=== PATIENT | female | born 1985 | race Caucasian/White ===

== ENCOUNTER 2024-03-14 01:57 | Inpatient (IN) | payer OTHER, SELFPAY ==
[2024-03-13 23:45] VITALS: BP 160/103; BMI 21.0
[2024-03-13 23:47] VITALS: BP 160/103
[2024-03-14] VITALS (7 sets, daily range): BP systolic 131–152; BP diastolic 89–107; BMI 20.4
[2024-03-14 00:11] LABS: % Basophils 1.4 % (0-2); % Eosinophils 0.8 % (0-6); % Immature Granulocytes 0.3 % (0-0.5); % Lymphocytes 19.1 % (20.5-51.1); % Monocytes 13.8 % (1.7-9.3); % Neutrophils 64.6 % (42.2-75.2); Absolute Basophils 0.1 10^3/uL (0-0.2); Absolute Eosinophils 0.1 10^3/uL (0-0.7); Absolute Lymphocytes 1.5 10^3/uL (1.2-3.4); Absolute Monocytes 1.1 10^3/uL (0.1-0.6); Absolute Neutrophils 4.9 10^3/uL (1.4-6.5); Hematocrit 38.8 % (37.0-47.0); Hemoglobin 13.9 g/dL (12.0-16.0); Mean Corp Hgb Conc. 35.8 g/dL (33.0-37.0); Mean Corpuscular Hgb 34.9 pg (27.0-31.0); Mean Corpuscular Volume 97.5 fL (81.0-99.0); Mean Platelet Volume 9.7 fL (7.4-10.4); Nucleated Red Blood Cells % 0 %; Platelet Count 354 10^3/uL (130-400); Red Blood Cell Count 3.98 10^6/uL (4.20-5.40); Red Cell Dist. Width 12.4 % (11.5-14.5); White Blood Cell Count 7.6 10^3/uL (4.8-10.8)
--- NOTE | 2024-03-14 00:16 | ED.GENMED ---
History of Present Illness
General
Chief Complaint: Seizure
Source: patient and spouse
Exam Limitations: none
Time Seen by Provider: 03/13/24 23:54
Travel History
Have you had any contact with someone who has COVID-19?: No
Do you have any symptoms of coronavirus? Fever > 100 degrees, chills, cough, shortness of breath, sore throat, loss of taste or smell, muscle aches, or headache?: No
History of Present Illness
History of Present Illness:
This is a 38 year old female that is brought in by ambulance with c/o possible seizure. states that she has been under a lot of stress. States that she had laid down with her boys and then she came to bed. States that he knew she felt
stressed. States that she has also been out of her Xanax and Ambien for the past 2 days. States that she yelled and then started with whole body shaking. States that he rolled her to her side and that this lasted 3-4 min and she started to come
around. States that she was still not oriented every after EMS got there. States that she had decreased her alcohol intake today. States that she has a slight headache. Denies any fever, chills, chest pain, SOB, abd pain, nausea, vomiting,
diarrhea, dizziness, urinary burning.
Past History
Past History
ED Past Medical History: Psychiatric (Depression, Anxiety) and Other (Cluster headaches, kidney stones, kidney infections, Neck and back pain, )
ED Past Surgical History: (X 1)
Social History
Tobacco: Non-smoker
Alcohol: Daily (Spiked [place] 2-3 or more)
Personal:
Living: with family
Review of Systems
Review of Systems
All Other Systems: ROS reviewed and negative except as documented in HPI and ROS
Constitutional: Reports no symptoms; Denies fever or chills
EENT: Reports no symptoms
Respiratory: Reports no symptoms; Denies cough or trouble breathing
Cardiac: Reports no symptoms; Denies chest pain
ABD/GI: Reports no symptoms; Denies abdominal pain, nausea, vomiting or diarrhea
: Reports no symptoms; Denies dysuria, frequency or urgency
Musculoskeletal: Reports no symptoms
Skin: Reports no symptoms
Neurological: Reports headache (Slight); Denies dizzy
Psychiatric: Reports no symptoms
Phy Exam
General Physical Exam
General Presentation: no apparent distress
General age: appears stated age
General Skin: warm and dry
General Habitus: normal
General Mental: alert
General Hydration: dry mucous membranes
ENT Exam
ENT Exam: TM's normal, pharynx normal and neck supple
Eye Exam
Eye Exam: EOMI
Cardiovascular Exam
Cardiovascular Exam: regular rate/rhythm, no edema, no murmur and normal peripheral pulses
Pulmonary Exam
Pulmonary Exam: lungs clear, no respiratory distress, no rales, chest non tender, no crackles, no rhonchi, no wheezing and no cough
Gastrointestinal Exam
Gastrointestinal Exam: normal bowel sounds, non tender, soft, no organomegaly, no pulsatile mass and non distended
Musculoskeletal Exam
Musculoskeletal Exam: full ROM and no edema
Skin Exam
Skin Exam: normal color, warm/dry, no rash and no petechia
Course
Orders/Labs/Results
Orders:
Orders
03/14/24 00:06
Alcohol Urgent
Complete Blood Count/With Diff Urgent
Comprehensive Metabolic Panel Urgent
03/14/24 00:15
Urine Drug Abuse Screen Urgent
03/14/24 00:16
Add On- LAB Urgent
Tests Added?: Alcohol
0.9% Sodium Chloride 1000 ml [Nss] 1,000 ml IV BOLUS
03/14/24 00:53
CT Head W/o Iv Contrast Urgent
Comment:
Reason For Exam: Possible seizure
Lorazepam [Ativan] 0.5 mg IV NOW STA
03/14/24 01:39
Admit/Transfer Patient As Directed
Co-Sign Provider:
Level of Care: Inpatient admission
Assign to:: Telemetry
Physician / Group: castroy
Diagnosis: witnessed Sz, post ictal confusion,acute BZD and ETOH WDS
Reason for Telemetry: Other
Other Reason for Telemetry: Witnessed Sz and ETOH and BZD WDs
Date to Stop Telemetry: 03/16/24
Time to Stop Telemetry: 11:00
Reason for Hospitalization: witnessed Sz, post ictal confusion,acute BZD and ETOH WDS
Expected length of stay greater than two midnights?: Yes
ELOS- Estimated Length of Stay in days: 3
I certify the patient meets the requirements for IP care: Yes
03/14/24 01:44
Code Status As Directed
Resuscitation Status: Full Code
03/14/24 02:00
Flush (0.9% Sodium Chloride) [Flush (Nss)] See Dose Instructions IV PER PROTOCOL
03/16/24 11:00
DC Protocol for Telemetry ONCE
Abnormal Lab Results
03/14/24
00:06
RBC 3.98 L 10^6/uL
(4.20-5.40)
MCH 34.9 H pg
(27.0-31.0)
Absolute Monos (auto) 1.1 H 10^3/uL
(0.1-0.6)
Lymphocytes % 19.1 L %
(20.5-51.1)
Monocytes % 13.8 H %
(1.7-9.3)
Sodium 134 L mmol/L
(135-145)
Chloride 91 L mmol/L
(98-107)
Carbon Dioxide 21 L mmol/L
(22-30)
BUN 2 L mg/dl
(7-17)
Creatinine 0.5 L mg/dL
(0.6-1.0)
Glucose 125 H mg/dl
(70-99)
AST 149 H U/L
(14-36)
ALT 43 H U/L
(0-35)
Alkaline Phosphatase 128 H U/L
(38-126)
Total Protein 8.3 H g/dl
(6.3-8.2)
Albumin 5.1 H g/dl
(3.5-5.0)
03/14/24 00:06
03/14/24 00:06
Chloride low, Glucose nonfasting. AST and ALT elevation. Alk phos slighty elevated. Alcohol level 44
Vital Signs
Initial and Last Documented VS:
Initial Vital Signs
Temp Pulse Resp BP Pulse Ox
98.5 F 83 20 160/103 99
03/13/24 23:45 03/13/24 23:45 03/13/24 23:45 03/13/24 23:45 03/13/24 23:45
Last Documented Vital Signs
Temp Pulse Resp BP Pulse Ox
98.5 F 76 15 152/90 98
03/13/24 23:45 03/14/24 01:30 03/14/24 01:30 03/14/24 01:00 03/13/24 23:59
MDM/Problems Addressed
Differential Diagnosis Includes:
Alcohol withdraw, seizure,
MDM/Problems Addressed:
This is a 38 year old female that comes in by ambulance with c/o possible seizure. states that she has been stressed and out of her Xanax and Ambien for 2 days. States that tonight she felt like her heart was racing and when she was laying
in bed she yelled and then started to shake. Patient was rolled to her side and it took some time before she even knew her .
Will check labs, give IF fluids and get Urine.
Back into see patient and . Explained that this is most likely a combination of Benzo withdraw and alcohol with draw. Patient had stated that she has not had her Xanax and ambien for 2 days and was decreasing her alcohol intake today. Will
admit for Observation. Hospitalist notified.
Hospitalist notified of CT port
Chronic conditions affecting care:
NA
Acute Exacerbation and/or Progression of Chronic Illness:
NA
*Radiology
Radiology exam reviewed: radiology read reviewed (Ct head- Low-attenuation with in the splenium of the corpus callosum (axial images 15 and 16). 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 Consider
neurology consultation. No acute intracranial hemorrhage, mass effect, or midline shift. Ventricles and) and other (CT cont- sulci are within normal limits)
*Pulse Oximetry
Patient hypoxic: no
*EKG
Interpreted by ED Provider?: NA
Rate: EKG- N/A
*Visual Inspector Interpretation
Rate: normal
Heart Rate: 82
Rhythm: sinus
*Critical Care Note
Total Time (30-74mins, 75-104mins- exclusive of procedures): Not Applicable
ED Attending Note
-
Portions of this chart may have been created with voice recognition software.� Occasional wrong word or��sound alike� substitutions may have occurred due to the inherent limitations of voice recognition software.
Discharge Plan
Departure
Patient Disposition: Admit
Date of Disposition: 03/14/24
Time of Disposition: 00:58
Admit to: Telemetry
Presentation/result/management discussed w/ accepting MD/DO: Hospitalist
Patient with high blood pressure during this ER visit?: Yes
Condition: Good
Covid-19: Not Applicable
Discharge Problem:
Alcohol and Benzo withdraw seizure
Prescriptions:
No Action
alprazolam 1 MG tablet
1 mg PO Q8HPRN PRN (Reason: anxiety)
dextroamphetamine-amphetamine [Adderall] 20 mg Tablet
30 mg PO DAILY
zolpidem [Ambien] 10 mg Tablet
10 mg PO HS PRN (Reason: sleep)
Discharge Date and Time
Print Language: PANAMANIAN
[2024-03-14 00:26] LABS: AST (SGOT) 149 U/L (14-36); Albumin 5.1 g/dl (3.5-5.0); Alkaline Phosphatase 128 U/L (38-126); Blood Urea Nitrogen 2 mg/dl (7-17); Calcium 9.7 mg/dl (8.4-10.2); Carbon Dioxide 21 mmol/L (22-30); Chloride 91 mmol/L (98-107); Estimated Creatinine Clearance 99 ml/min; Glucose 125 mg/dl (70-99); Sodium 134 mmol/L (135-145); Total Bilirubin 1.1 mg/dl (0.2-1.3); Total Protein 8.3 g/dl (6.3-8.2); eGFR > 60.00
[2024-03-14] MEDS: NSS 1000 IV ×4 (00:32→23:36)
[2024-03-14 00:45] LABS: ALT (SGPT) 43 U/L (0-35); Alcohol 44 mg/dl
[2024-03-14] MEDS: ATIVAN 0.5 MG IV (00:59)
--- NOTE | 2024-03-14 01:32 | HPS.HSE ---
Addendum entered and electronically signed by Jacky Peterson MD 03/14/24 02:05:
HCT report
Low-attenuation with in the splenium of the corpus callosum
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
No acute intracranial hemorrhage, mass effect, or midline shift. Ventricles and) and
Consider neurology consultation.
Addendum entered and electronically signed by Jacky Peterson MD 03/14/24 01:57:
Addendum: per Mother at bed side
Patient is taking 0.5mg of Xanax 6 tabs 4 times daily
Patient ran out of Xanax for last 2- 3days
Suspect acute Xanax WD induced Sz
Original Note:
Family Physician
-
Family Physician: Carlos Gabriel
Chief Complaint
-
Likely Sz
History of Present Illness
38F HX depression and anxiety [facility] EMS for evaluation fo possible Sz
Likely witnessed Sz with post ictal confusion
- under a lot of stress
- out of Xanax and Ambien for last 2 - 3 days and she drink less ETOH today
- per spouse - she yelled out noted whole body is shaking
- lasted 2 mins
- EMS was called and noted she was confused
- No prior HX sz
ROS
Denies any fever, chills, chest pain, SOB
Medical History
Past Medical History
Past Medical History: Reports Psychiatric (Depression, Anxiety, ETOH use disorder ) and Other
Additional Past Medical History:
Cluster headaches
kidney stones
kidney infections
Neck and back pain
Past Surgical History: Reports
Social History
Tobacco: Non-smoker
Alcohol: Daily (Spiked [place] 2-3 or more)
Personal:
Living: With Family
Family History
Family History: Not pertinent
Allergies / Home Medications
Allergies reflects when Allergies were last updated in [employer].
Home Medications with original date entered in [facility] [employer]
Allergy/Medication List:
Allergies
Allergy/AdvReac Type Severity Reaction Status Date / Time
Penicillins Allergy Unknown Verified 06/02/19 17:12
Home Medications
alprazolam 1 mg tablet 1 mg PO Q8HPRN PRN anxiety 10/23/13
dextroamphetamine-amphetamine 20 mg tablet (Adderall) 30 mg PO DAILY 03/14/24
zolpidem 10 mg tablet (Ambien) 10 mg PO HS PRN sleep 03/14/24
Review of Systems
-
Constitutional: Reports No Symptoms
EENT: Reports No Symptoms
Respiratory: Reports No Symptoms
Cardiac: Reports No Symptoms
Abdomen/GI: Reports No Symptoms
: Reports No Symptoms
Musculoskeletal: Reports No Symptoms
Skin: Reports No Symptoms
Neurological: Reports See HPI
Endocrine: Reports No Symptoms
Hematologic/Lymphatic: Reports No Symptoms
Psych: Reports No Symptoms
Physical Exam
Vital Signs
Vital Signs
Temp Pulse Resp BP Pulse Ox
98.5 F 76 15 152/90 98
03/13/24 23:45 03/14/24 01:30 03/14/24 01:30 03/14/24 01:00 03/13/24 23:59
Physical Exam
General: Well Developed, Well Nourished and No Apparent Distress
HEENT: NormoCephalic, Moist mucous membranes and Atraumatic
Respiratory: Clear
Cardiac: S1/S2 and Regular Rhythm; No Murmur or Rub
GI: Soft, Non Tender, Non Distended and Normal Bowel Sounds; No Organomegaly
Rectal: Deferred by Provider
Musculoskeletal: No Clubbing, No Cyanosis and No Edema
Skin: No Rash
Neuro: Nonfocal/grossly intact
Laboratory Results
-
03/14/24 00:06
03/14/24 00:06
Laboratory Results
Total Bilirubin 1.1 mg/dl (0.2-1.3) 03/14/24 00:06
AST 149 U/L (14-36) H 03/14/24 00:06
ALT 43 U/L (0-35) H 03/14/24 00:06
Alkaline Phosphatase 128 U/L (38-126) H 03/14/24 00:06
Data Reviewed
-
Diagnostic Radiology: Other (pending HCT )
Lab Data: Labs Reviewed by me
Impression/Plan
-
Data
Abnormal Lab Results
03/14/24
00:06
RBC 3.98 L
MCH 34.9 H
Absolute Monos (auto) 1.1 H
Lymphocytes % 19.1 L
Monocytes % 13.8 H
Sodium 134 L
Chloride 91 L
Carbon Dioxide 21 L
BUN 2 L
Creatinine 0.5 L
Glucose 125 H
AST 149 H
ALT 43 H
Alkaline Phosphatase 128 H
Total Protein 8.3 H
Albumin 5.1 H
ETOH 44
Pending UDS
Pending HCT
NO PRIOR hospitalist admission:
ASSESSMENT & PLAN
Witnessed Sz suspect generalized tonic clonic Sz : new onset
Slowly resolving post ictal confusion
Suspect associated with acute BZD and ETOH WDS
ran out of Xanax for last 2-3 days
-No prior HX Sz
- s/p IV Ativan 0.5mg at ER
- IV Ativan PRN
- f/u final HCT report
- Neuro consult
HX of ETOH use disorder: Daily (Spiked [place] 2-3 or more)
Depression, Anxiety HX
- on Adderall
- MSAS protocol
- Psych consult
Abn LFTs
- suspect ETOH hepatitis
- Trend LFts
Known HX : stable
Cluster headaches
kidney stones
kidney infections
Neck and back pain
DVT Px: SCD
Code: Full
IP TLM
--- NOTE | 2024-03-14 04:15 | PTCARENOTE ---
Pt admit to room 330 via stretcher. Ambulated into room without difficulty. Assessment completed. Pt offers no complaints at this time. MSAS 3 on admit to room. Will continue to monitor. Mother at bedside.
[2024-03-14 04:20] LABS: GGTP 665 U/L (12-43)
[2024-03-14 06:47] LABS: ALT (SGPT) 34 U/L (0-35); AST (SGOT) 113 U/L (14-36); Alkaline Phosphatase 110 U/L (38-126); Blood Urea Nitrogen 4 mg/dl (7-17); Calcium 8.8 mg/dl (8.4-10.2); Carbon Dioxide 28 mmol/L (22-30); Chloride 96 mmol/L (98-107); Estimated Creatinine Clearance 99 ml/min; Glucose 101 mg/dl (70-99); Potassium 3.9 mmol/L (3.5-5.1); Sodium 134 mmol/L (135-145); Total Bilirubin 1.4 mg/dl (0.2-1.3); Total Protein 6.7 g/dl (6.3-8.2); eGFR > 60.00
[2024-03-14] MEDS: THIAMINE INJECTION 200 MG IV ×3 (07:34→23:36)
[2024-03-14] MEDS: FOLVITE 1 MG PO (07:34)
[2024-03-14] MEDS: ATIVAN 1 MG PO ×2 (07:34→10:41)
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
[2024-03-14 09:54] LABS: Erythrocyte Sed Rate 11 mm/hour (0-20)
--- NOTE | 2024-03-14 10:14 | CS.PSYCHR ---
Consult Summary - Psychiatry
-
Patient seen at bedside with mother present, chart reviewed, discussed with staff. This is a 38 year old female patient who presented to the ED with symptoms of a possible seizure. No prior history of seizures reported. Patient is prescribed Xanax,
Ambien, and Adderall and had reportedly been out of medication for a few days. Patient admits she has been taking more than prescribed and drinking more ETOH lately that she relates to stress but did not elaborate. I could sense patient was
uncomfortable speaking in front of her mother however, declined my offer to speak privately as she did not want to make her mother leave the room. Patient tells me she is exhausted and cannot really think straight since she has not yet slept
(admitted last evening). She was able to tell me she has been seeing a psychiatrist on and off since 2008 and has been prescribed benzodiazepines for many, many years and does not feel they are as effective any longer which leads her to take more
than prescribed. I attempted to obtain further information such as other more detailed psych history, medication trials, etc. but she asks if we can discuss this tomorrow. Agreed and will attempt to obtain more information tomorrow.
Past history - scoliosis, chronic back/neck pain, cluster headaches
Psych history - MDD, anxiety, ETOH use disorder
Social history - , lives with family; ETOH 4+ spiked seltzers daily, denies tobacco, denies MJ or recreational drug use, occasional caffeine
MSE - AAOx3, cooperative, calm, good eye contact, mood appears euthymic, mild anxiety noted, affect congruent with mood, speech is coherent, thought process/content organized and appropriate, denies any SI/SB/HI
Impression/Plan: Anxiety disorder, unspecified - hold on standing dose of Xanax for now, patient prescribed 1mg TID as outpatient and admittedly using more than prescribed. PDMP reviewed last filled 02/13/24 for 90 tabs. MSAS ordered for ETOH; ETOH
use disorder - continue with MSAS and monitor for withdrawal symptoms, may need to consider phenobarbital if symptoms not managed by MSAS.
Patient is prescribed Ambien 10mg which should be held for now if not indefinitely with concurrent ETOH use. Patient prescribed Adderall 20mg TID, unclear of ADHD diagnosis. This should be held as this could be a factor to uncontrolled anxiety
symptoms. We did speak of the concerns for the current combination of medications briefly and she was informed of medications being held and is agreeable at this time.
[2024-03-14 11:39] LABS: Folate 4.3 ng/ml (2.76-20)
[2024-03-14 11:43] LABS: TSH Reflex To Free T4 0.64 uIU/ml (0.47-4.68)
[2024-03-14 14:53] LABS: Vitamin B12 450 pg/ml (239-931)
--- NOTE | 2024-03-14 15:21 | CM ---
Addendum entered by Nancy Mathur 03/14/24 15:43:
Spoke with Chucky at [facility]
Given pt information for referral
Per Chucky - will see pt tomorrow in AM to discuss counseling
Original Note:
Met with pt at bedside. Admitted after witnessed seizure
Hx of depression and anxiety. Taking Xanax, alcohol and Ambien at home
Pt reports she lives with her and 2 sons (10&12)
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
DME - oxygen - uses with migraines as needed
SNF/HH - denies
Has ride at d/c
PCP - Dr Meliza Gabriel
Pharm - [facility]
CM consult for substance abuse counseling
Hx of depression and anxiety. Taking Xanax, alcohol and Ambien at home
On admission reported 'feeling very stressed'
Discussed substance abuse counseling - pt agreed to counseling
Called Chucky at [facility] [phone] - will return call
Plan - anticipate home with substance abuse counseling at d/c
[2024-03-14] MEDS: ATIVAN 1 MG IV (15:53)
--- NOTE | 2024-03-14 17:05 | W.PN.HOSP.TC ---
Today's Communication/Plan
-
See plan
Assessment / Plan
Assessment / Plan
Impression:
Generalized seizure
Alcohol use disorder.
Benzodiazepine dependence.
Anxiety disorder
Plan
Generalized seizure likely due to continuation of alcohol and benzodiazepine withdrawal.
Discussed with neurology
Plan is to keep on Keppra for another 24 hours, although not for long-term pain
Continue seizure precautions.
Manage alcohol withdrawal
Alcohol use disorder.
Alcohol level on presentation 44.
At risk for delirium tremens.
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
Continue MSAS protocol with lorazepam.
Please hold standing dose of Xanax and Ambien.
Monitor closely, may require additional management with IV phenobarbital if further progressing
Aggressive thiamine repletion over the next 72 hours.
Appreciate neurology/psychiatry input.
Anticipated Discharge: 24 - 48 hours
Subjective/Interval History
-
Date of Service: March 14, 2024
Objective Data
-
Labs:
Laboratory Results
03/14/24
05:59
Sodium 134 L
Potassium 3.9
Chloride 96 L
Carbon Dioxide 28
BUN 4 L
Creatinine 0.5 L
Glucose 101 H
Calcium 8.8
Total Bilirubin 1.4 H
AST 113 H
ALT 34
Alkaline Phosphatase 110
Vital Signs:
Vital Signs
Temp Pulse Resp BP Pulse Ox
99.1 F 86 16 133/103 97
03/14/24 15:00 03/14/24 15:00 03/14/24 15:00 03/14/24 15:00 03/14/24 15:00
Physical Exam
-
General: Well Developed and No Apparent Distress
HEENT: Normocephalic, Atraumatic and Moist Mucous Membranes
Respiratory: Clear to Auscultation
Cardiac: Regular Rhythm and S1/S2; Negative Murmur, Rub or Gallop
GI: Soft, Nontender, Nondistended and Normal Bowel Sounds; Negative Organomegaly
Rectal: Deferred by Provider
Musculoskeletal: No Clubbing, No Cyanosis and No Edema
Skin: Negative Rash
Neuro: Awake, Alert, Oriented, AO x 3, No Motor Deficits, Nonfocal/Grossly Intact and No Sensory Deficits; Negative Tremors
[2024-03-14] MEDS: KEPPRA 1000 MG PO (19:49)
[2024-03-15] VITALS (7 sets, daily range): BP systolic 111–148; BP diastolic 78–92
--- NOTE | 2024-03-15 09:17 | W.PN.HOSP.TC ---
Addendum entered and electronically signed by Jac Treadwell MD 03/15/24 16:46:
Patient seen and examined
Discussed with resident
Discussed with psychiatry.
Impression/plan:
Generalized seizure
Alcohol/benzodiazepine use disorder
On Adderall prior to presentation? ADHD versus symptoms related to above
Mild LFT elevation secondary to alcohol with no evidence of hepatic dysfunction
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
Remains anxious and required lorazepam supplementation according to MSAS assessment
Start phenobarbital taper
Monitor LFT.
Continue IV thiamine
Original Note:
Today's Communication/Plan
-
- Start phenobarbital taper.
- Continue thiamine and folate repletion.
- CMP in AM.
Assessment / Plan
Assessment / Plan
Impression:
Generalized seizure
Alcohol use disorder.
Benzodiazepine dependence.
Anxiety disorder
Plan
Generalized seizure likely due to continuation of alcohol and benzodiazepine withdrawal.
Discussed with neurology
Plan is to keep on Keppra for another 24 hours, although not for long-term pain
Continue seizure precautions.
Manage alcohol withdrawal
Alcohol use disorder.
Alcohol level on presentation 44.
At risk for delirium tremens.
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
Continue MSAS protocol with lorazepam.
Please hold standing dose of Xanax and Ambien.
Aggressive thiamine repletion over the next 72 hours.
Additional management with IV phenobarbital
Appreciate neurology/psychiatry input.
Anticipated Discharge: 24 - 48 hours
Subjective/Interval History
-
Date of Service: March 15, 2024
Objective Data
-
Vital Signs:
Vital Signs
Temp Pulse Resp BP Pulse Ox
98.9 F 82 18 134/91 97
03/15/24 07:00 03/15/24 07:00 03/15/24 07:00 03/15/24 07:00 03/15/24 07:00
I&O
03/14/24 03/15/24 03/16/24
06:59 06:59 06:59
Intake Total 980 / 980
Balance 980 / 980
Review of Systems
-
History Source: Patient
Constitutional: Reports Sleep Disturbance (restlessness)
EENT: Reports No Symptoms Reported
Respiratory: Reports No Symptoms
Cardiac: Reports No Symptoms
Abdomen/GI: Reports No Symptoms
Genitourinary: Reports No Symptoms
Musculoskeletal: Reports No Symptoms
Skin: Reports No Symptoms
Neuro: Reports No Symptoms
Endocrine: Reports No Symptoms
Hematologic / Lymphatic: Reports No Symptoms
Allergy / Immunology: Reports No Symptoms
Psych: Reports Anxious
Physical Exam
-
General: No Apparent Distress and Comfortable
HEENT: Normocephalic, Atraumatic, Moist Mucous Membranes and Anicteric
Respiratory: Clear to Auscultation and Non Labored Respirations
Cardiac: Regular Rhythm and S1/S2
GI: Soft, Nontender, Nondistended and No Hepatosplenomegaly
Genito-urinary: No Costovertebral Tender
Musculoskeletal: No Clubbing, No Cyanosis and No Edema
Skin: Warm, Dry and IV Access / Catheter Site
Neuro: Awake, Alert, Oriented and Nonfocal/Grossly Intact
Hematologic / Lymphatic: No Lymphadenopathy
Psych: Calm
[2024-03-15] MEDS: KEPPRA 1000 MG PO ×2 (09:30→20:33)
[2024-03-15] MEDS: FOLVITE 1 MG PO (09:30)
[2024-03-15] MEDS: THIAMINE INJECTION 200 MG IV ×3 (09:30→23:17)
[2024-03-15] MEDS: ATIVAN 1 MG PO (09:42)
--- NOTE | 2024-03-15 11:26 | CM ---
Addendum entered by Nancy Mathur 03/15/24 15:45:
Dr Stone recommending inpatient rehab - she spoke with Chucky at [facility]
Clinicals faxed to Chucky
Plan - inpatient rehab when medically ready
Original Note:
Case management following for d/c planning
Chart reviewed
Pt met with Chucky from [facility]
Per Chucky given resources for outpatient services
CM will cont to follow for d/c needs
Plan - home with resources for outpatient rehab
--- NOTE | 2024-03-15 12:21 | W.PN.UPDATE ---
Update Note
Progress Note Update
patient seen chart reviewed. spoke with nursing, dr anabelle [facility] [place] [facility]. the patient does not deny the seriousness of her issue with addictive medications (xanax and ambien) as well as adderal and alcohol. the patient was seeing dr gutierrez
izzy for psych who was under the impression she was not drinking. she admits she was not honest with him and was consuming large amounts of etoh. she denies EVER driving when intoxicated. she does admit to a hx of depression and anxiety. she
did NOT have adhd as a child. we discussed whether the attentional issue could have been secondary to depression anxiety and the stressors of life. (she has two kids, mom has MS etc). we talked about the ? lesion in the corpus callosum being a sx
of wernicke's which underscores the need for sobriety. she had refused in patient but after our conversation she agrees to consider it and mr blake from [facility] will research in patient options. she has not been using a lot of ativan but we need to
address the xanax withdrawal. last use last wednesday. discussed w dr ahn. will start phenobarb taper to address this. msas stlil in place to address wd sx. impressed upon patient the necessity of understanding relapse triggers and how to deal
with them which will be addressed in in patient rehab and the importance of getting some significant sobriety under her belt before returning home where the 'people places and things' associated with her addictions will assail her. will follow
[2024-03-15] MEDS: PHENOBARBITAL 104 MG IV (12:41)
[2024-03-15 13:49] LABS: Amphetamines Negative (Negative); Barbiturates Negative (Negative); Benzodiazepines Positive (Negative); Buprenorphine Negative (Negative); Cocaine Negative (Negative); Marijuana Negative (Negative); Methadone Negative (Negative); Methamphetamines Negative (Negative); Opiates Negative (Negative); Phencyclidine Negative (Negative); Tricyclic Antidepressants Negative (Negative)
[2024-03-15 14:11] LABS: Fentanyl, Urine Negative (Negative)
[2024-03-15] MEDS: ATIVAN 1 MG IV ×2 (15:05→20:34)
[2024-03-15] MEDS: NSS (PRESERVATIVE FREE) 10 ML IV (15:09)
[2024-03-15] MEDS: NSS (PRESERVATIVE FREE) 0.5 ML IV (20:34)
[2024-03-15] MEDS: PHENOBARBITAL 97.5 MG IV (23:15)
[2024-03-16 03:00] VITALS: BP 111/78
[2024-03-16 06:03] LABS: Hemoglobin 12.9 g/dL (12.0-16.0); Mean Corp Hgb Conc. 34.9 g/dL (33.0-37.0); Mean Corpuscular Hgb 35.4 pg (27.0-31.0); Mean Corpuscular Volume 101.6 fL (81.0-99.0); Mean Platelet Volume 10.3 fL (7.4-10.4); Platelet Count 223 10^3/uL (130-400); Red Blood Cell Count 3.64 10^6/uL (4.20-5.40); Red Cell Dist. Width 12.1 % (11.5-14.5); White Blood Cell Count 7.4 10^3/uL (4.8-10.8)
[2024-03-16 06:39] LABS: ALT (SGPT) 27 U/L (0-35); AST (SGOT) 85 U/L (14-36); Albumin 3.6 g/dl (3.5-5.0); Alkaline Phosphatase 85 U/L (38-126); Blood Urea Nitrogen 6 mg/dl (7-17); Calcium 9.4 mg/dl (8.4-10.2); Carbon Dioxide 26 mmol/L (22-30); Chloride 103 mmol/L (98-107); Estimated Creatinine Clearance 98 ml/min; Glucose 87 mg/dl (70-99); Potassium 3.7 mmol/L (3.5-5.1); Sodium 135 mmol/L (135-145); Total Bilirubin 0.5 mg/dl (0.2-1.3); Total Protein 6.2 g/dl (6.3-8.2); eGFR > 60.00
[2024-03-16 07:00] VITALS: BP 114/77
[2024-03-16] MEDS: KEPPRA 1000 MG PO ×2 (08:17→19:51)
[2024-03-16] MEDS: FOLVITE 1 MG PO (08:17)
[2024-03-16] MEDS: THIAMINE INJECTION 200 MG IV ×3 (08:18→23:04)
[2024-03-16] MEDS: PHENOBARBITAL 97.5 MG IV ×3 (08:18→23:04)
--- NOTE | 2024-03-16 09:25 | PN.CDI ---
CDI
- -
CDI:
Physician Documentation Request
Admit Date: 03/14/24 01:57
Dear Doctor Elsy,
Patient admitted for alcohol and benzodiazepine withdrawal.
H&P: 'Witnessed Sz suspect generalized tonic clonic Sz : new onset, Slowly resolving post ictal confusion, Suspect associated with acute BZD and ETOH WDS...HX of ETOH use disorder: Daily ([place] 2-3 or more)'
03/15 Hospitalist PN: 'Alcohol use disorder, Alcohol level on presentation 44...Continue MSAS protocol with lorazepam.'
03/15 Psychiatry Note: 'seeing dr matt magana for psych who was under the impression she was not drinking. she admits she was not honest with him and was consuming large amounts of etoh.'
If possible, please provide further specificity as outlined below:
Alcohol use with dependence
Alcohol use
Other
Use of terms such as suspected, likely, concern for, or probable (associated with a specific diagnosis that is being evaluated, monitored, or treated as if it exists) are acceptable and can be coded in the inpatient setting, when documented at the
time of discharge.
Thank you,
Carlee Chin RN, BSN
CDI Specialist
Available via [facility] text
Please use your independent medical judgment in providing your response.
--- NOTE | 2024-03-16 09:48 | CM ---
Addendum entered by Nancy Mathur 03/16/24 15:09:
Spoke with Chucky at [facility]
Spoke with pt and today - Now interested [facility]
Chucky will update Case Management when accepted
Plan - discharge to inpatient rehab when medically ready
Original Note:
Case management following for d/c planning
[facility]
CM will cont to follow for d/c needs
Plan - anticipate inpatient rehab when medically ready
--- NOTE | 2024-03-16 10:49 | W.PN.HOSP.TC ---
Addendum entered and electronically signed by Jac Treadwell MD 03/16/24 13:23:
Patient seen and examined
Discussed with resident
Discussed with psychiatry
Impression/plan:
Generalized seizure secondary to alcohol and benzodiazepine withdrawal
Multisubstance dependence including alcohol, benzodiazepines, Adderall.
Abnormal LFTs, mild transaminases elevation due to alcohol
Doing relatively well with what looks like aborted DT while on lorazepam and later addition of phenobarbital.
Less anxious and improved MSAS score with minimal lorazepam requirements since introduction of phenobarbital
Continue IV thiamine
Ongoing discussion in terms of transition to inpatient rehab if patient agrees.
Could be discharged to inpatient rehab once through IV portion of phenobarbital taper
LFTs improved.
Original Note:
Today's Communication/Plan
-
- Continue phenobarbital taper.
- Continue thiamine and folate repletion.
- CMP in AM.
Assessment / Plan
Assessment / Plan
Impression:
Generalized seizure
Alcohol use disorder.
Benzodiazepine dependence.
Anxiety disorder
Plan
Generalized seizure likely due to continuation of alcohol and benzodiazepine withdrawal.
Discussed with neurology
Plan is to keep on Keppra for now, although not for long-term
Continue seizure precautions.
Manage alcohol withdrawal
Alcohol use disorder.
Alcohol level on presentation 44.
At risk for delirium tremens.
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
Continue MSAS protocol with lorazepam.
Please hold standing dose of Xanax and Ambien.
Aggressive thiamine repletion over the next 72 hours.
Additional management with IV phenobarbital
Appreciate neurology/psychiatry input.
Anticipated Discharge: 24 - 48 hours
Subjective/Interval History
-
Date of Service: March 16, 2024
Objective Data
-
Labs:
Laboratory Results
03/16/24
05:37
WBC 7.4
Hgb 12.9
Hct 37.0
Plt Count 223 D
Sodium 135
Potassium 3.7
Chloride 103
Carbon Dioxide 26
BUN 6 L
Creatinine 0.5 L
Glucose 87
Calcium 9.4
Total Bilirubin 0.5
AST 85 H
ALT 27
Alkaline Phosphatase 85
Vital Signs:
Vital Signs
Temp Pulse Resp BP Pulse Ox
98.4 F 86 18 114/77 96
03/16/24 07:00 03/16/24 07:00 03/16/24 07:00 03/16/24 07:00 03/16/24 07:00
I&O
03/15/24 03/16/24 03/17/24
06:59 06:59 06:59
Intake Total 980 / 980 480 / 480
Output Total 200 / 200
Balance 980 / 980 280 / 280
Review of Systems
-
History Source: Patient
Constitutional: Reports Sleep Disturbance (restlessness)
EENT: Reports No Symptoms Reported
Respiratory: Reports No Symptoms
Cardiac: Reports No Symptoms
Abdomen/GI: Reports No Symptoms
Genitourinary: Reports No Symptoms
Musculoskeletal: Reports No Symptoms
Skin: Reports No Symptoms
Neuro: Reports No Symptoms
Endocrine: Reports No Symptoms
Hematologic / Lymphatic: Reports No Symptoms
Allergy / Immunology: Reports No Symptoms
Psych: Reports Anxious
Physical Exam
-
General: No Apparent Distress and Comfortable
HEENT: Normocephalic, Atraumatic, Moist Mucous Membranes and Anicteric
Respiratory: Clear to Auscultation and Non Labored Respirations
Cardiac: Regular Rhythm and S1/S2
GI: Soft, Nontender, Nondistended and No Hepatosplenomegaly
Genito-urinary: No Costovertebral Tender
Musculoskeletal: No Clubbing, No Cyanosis and No Edema
Skin: Warm, Dry and IV Access / Catheter Site
Neuro: Awake, Alert, Oriented and Nonfocal/Grossly Intact
Hematologic / Lymphatic: No Lymphadenopathy
Psych: Calm
[2024-03-16 11:00] VITALS: BP 116/79
--- NOTE | 2024-03-16 12:25 | W.PN.UPDATE ---
Update Note
Progress Note Update
patient seen chart reviewed. spoke w brady. present. patient is doing reasonably well vis a vis withdrawal. she has not required much in they way of prn ativan ...one in the past day. she does not appear tremulous or sweating. family
is in favor of in patient rehab. i do sense some reluctance on the patient's part so i continue to work on convincing her that it will not be easy to be sober and it is not merely alcohol here but benzos ambien and adderall which are at issue.
discussed with dr ahn. when she transitions to po phenobarb can be dc to rehab which hopefully she will accept.
[2024-03-16 15:00] VITALS: BP 151/94
[2024-03-16 19:40] VITALS: BP 138/90
[2024-03-16] MEDS: ATIVAN 1 MG IV (19:58)
[2024-03-16] MEDS: NSS (PRESERVATIVE FREE) 0.5 ML IV (19:59)
[2024-03-16 22:56] VITALS: BP 128/91
[2024-03-17 03:23] VITALS: BP 140/94
[2024-03-17 06:16] LABS: % Basophils 1.1 % (0-2); % Eosinophils 5.1 % (0-6); % Immature Granulocytes 0.2 % (0-0.5); % Lymphocytes 13.9 % (20.5-51.1); % Monocytes 10.2 % (1.7-9.3); % Neutrophils 69.5 % (42.2-75.2); Absolute Basophils 0.1 10^3/uL (0-0.2); Absolute Eosinophils 0.5 10^3/uL (0-0.7); Absolute Lymphocytes 1.2 10^3/uL (1.2-3.4); Absolute Monocytes 0.9 10^3/uL (0.1-0.6); Absolute Neutrophils 6.2 10^3/uL (1.4-6.5); Hematocrit 36.6 % (37.0-47.0); Mean Corp Hgb Conc. 35.5 g/dL (33.0-37.0); Mean Corpuscular Hgb 34.7 pg (27.0-31.0); Mean Corpuscular Volume 97.6 fL (81.0-99.0); Mean Platelet Volume 10.2 fL (7.4-10.4); Nucleated Red Blood Cells % 0 %; Platelet Count 246 10^3/uL (130-400); Red Blood Cell Count 3.75 10^6/uL (4.20-5.40); Red Cell Dist. Width 12.3 % (11.5-14.5); White Blood Cell Count 8.9 10^3/uL (4.8-10.8)
[2024-03-17 06:37] LABS: ALT (SGPT) 27 U/L (0-35); AST (SGOT) 66 U/L (14-36); Albumin 3.7 g/dl (3.5-5.0); Alkaline Phosphatase 83 U/L (38-126); Blood Urea Nitrogen 5 mg/dl (7-17); Calcium 9.3 mg/dl (8.4-10.2); Carbon Dioxide 27 mmol/L (22-30); Chloride 100 mmol/L (98-107); Estimated Creatinine Clearance 98 ml/min; Glucose 105 mg/dl (70-99); Potassium 3.6 mmol/L (3.5-5.1); Sodium 136 mmol/L (135-145); Total Bilirubin 0.5 mg/dl (0.2-1.3); Total Protein 6.3 g/dl (6.3-8.2); eGFR > 60.00
[2024-03-17 07:00] VITALS: BP 126/92
[2024-03-17] MEDS: PHENOBARBITAL 97.5 MG IV ×2 (08:32→15:47)
[2024-03-17] MEDS: VITAMIN B1 100 MG PO ×2 (08:32→19:59)
[2024-03-17] MEDS: FOLVITE 1 MG PO (08:32)
[2024-03-17] MEDS: KEPPRA 1000 MG PO ×2 (08:32→19:59)
--- NOTE | 2024-03-17 10:49 | W.PN.HOSP.TC ---
Addendum entered and electronically signed by Jac Treadwell MD 03/17/24 15:47:
Patient seen and examined
Plan of care discussed with resident
Impression/plan:
Generalized seizure secondary to alcohol and benzodiazepine withdrawal
Multisubstance dependence including alcohol, benzodiazepines, Adderall.
Alcohol dependence
Abnormal LFTs, mild transaminases elevation due to alcohol
Stable with what looks like aborted delirium tremens/benzodiazepine withdrawal
No recurrent seizures
Initiated on phenobarbital and through IV part of the taper being transition to p.o.
MSAS improved with no required lorazepam over the last 24
LFTs within normal limits.
Patient agreed for inpatient rehab discharge and will be transitioned in AM.
Original Note:
Today's Communication/Plan
-
- Taper phenobarbital.
- Discharge to in-patient rehab tomorrow.
Assessment / Plan
Assessment / Plan
Impression:
Generalized seizure
Alcohol use disorder.
Benzodiazepine dependence.
Anxiety disorder
Plan
Generalized seizure likely due to continuation of alcohol and benzodiazepine withdrawal.
Discussed with neurology
Plan is to keep on Keppra for now, although not for long-term
Continue seizure precautions.
Manage alcohol withdrawal
Alcohol use disorder.
Alcohol level on presentation 44.
At risk for delirium tremens.
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
Continue MSAS protocol with lorazepam.
Please hold standing dose of Xanax and Ambien.
Aggressive thiamine repletion over the next 72 hours.
Continue IV phenobarbital taper
Discharge to in-patient rehab tomorrow
Appreciate neurology/psychiatry input.
Anticipated Discharge: Within 24 hours
Subjective/Interval History
-
Date of Service: March 17, 2024
Objective Data
-
Labs:
Laboratory Results
03/17/24
05:48
WBC 8.9
Hgb 13.0
Hct 36.6 L
Plt Count 246
Sodium 136
Potassium 3.6
Chloride 100
Carbon Dioxide 27
BUN 5 L
Creatinine 0.5 L
Glucose 105 H
Calcium 9.3
Total Bilirubin 0.5
AST 66 H
ALT 27
Alkaline Phosphatase 83
Vital Signs:
Vital Signs
Temp Pulse Resp BP Pulse Ox
98.3 F 84 16 126/92 97
03/17/24 07:00 03/17/24 07:00 03/17/24 07:00 03/17/24 07:00 03/17/24 07:00
I&O
03/16/24 03/17/24 03/18/24
06:59 06:59 06:59
Intake Total 480 / 480 240 / 240
Output Total 200 / 200
Balance 280 / 280 240 / 240
Review of Systems
-
History Source: Patient
Constitutional: Reports Sleep Disturbance (restlessness)
EENT: Reports No Symptoms Reported
Respiratory: Reports No Symptoms
Cardiac: Reports No Symptoms
Abdomen/GI: Reports No Symptoms
Genitourinary: Reports No Symptoms
Musculoskeletal: Reports No Symptoms
Skin: Reports No Symptoms
Neuro: Reports No Symptoms
Endocrine: Reports No Symptoms
Hematologic / Lymphatic: Reports No Symptoms
Allergy / Immunology: Reports No Symptoms
Psych: Reports Anxious
Physical Exam
-
General: No Apparent Distress and Comfortable
HEENT: Normocephalic, Atraumatic, Moist Mucous Membranes and Anicteric
Respiratory: Clear to Auscultation and Non Labored Respirations
Cardiac: Regular Rhythm and S1/S2
GI: Soft, Nontender, Nondistended and No Hepatosplenomegaly
Genito-urinary: No Costovertebral Tender
Musculoskeletal: No Clubbing, No Cyanosis and No Edema
Skin: Warm, Dry and IV Access / Catheter Site
Neuro: Awake, Alert, Oriented and Nonfocal/Grossly Intact
Hematologic / Lymphatic: No Lymphadenopathy
Psych: Calm
[2024-03-17 11:00] VITALS: BP 119/85
--- NOTE | 2024-03-17 13:35 | W.PN.UPDATE ---
Update Note
Progress Note Update
patient seen chart reviewed. spoke with brady. the patient had initially been waffling on whether to go to in patient but with support of family and staff agreed to in pt and will go to rehab tomorrow. present today. reiterated the
wisdom of her decision to seek in patient which will better the odds for success to maintain sobriety. we talked about her addiction. she is accepting of responsibility for continuing to drink and use xanax adderall and ambien despite her addiction.
pointed out to the many advantages patient has to help support her in her quest for sobriety but the decision had to come from her and her own motivation. children will come tomorrow to say good bye as she goes to re [facility] and family will transport.
will have psych check in w her tomorrow. no changes made in her medications. transition to po phenobarb in place. she has not required ativan prn for some days and vital signs have been stable.
--- NOTE | 2024-03-17 14:13 | CM ---
[facility] and agreed to [facility] tomorrow
Plan: discharge to Inpatient Rehab tomorrow
[2024-03-17 15:00] VITALS: BP 112/76
[2024-03-17 19:52] VITALS: BP 138/99
[2024-03-17] MEDS: ZOFRAN 4 MG IV (19:58)
[2024-03-17] MEDS: LUMINAL 64.7999999999999972 MG PO (22:27)
[2024-03-17 23:21] VITALS: BP 135/93
[2024-03-18 03:11] VITALS: BP 123/93
[2024-03-18] MEDS: TYLENOL 650 MG PO ×2 (03:11→19:50)
[2024-03-18] MEDS: PROTONIX 40 MG PO (03:12)
--- NOTE | 2024-03-18 03:50 | PTCARENOTE ---
Patient c/o b/l chest pressure 7/10 and a headache. She was vague with her symptoms and could not really describe pain until her gave her some options for pain symptoms. VS WNL, ekg obtained and INSTRUCTIONAL DESIGN SPECIALIST Radha Coles notified. tylenol and
protonix ordered and given. plan of care ongoing
[2024-03-18 07:00] VITALS: BP 131/90
[2024-03-18 08:21] LABS: % Basophils 0.9 % (0-2); % Immature Granulocytes 0.3 % (0-0.5); % Lymphocytes 10.3 % (20.5-51.1); % Monocytes 12.1 % (1.7-9.3); % Neutrophils 72.4 % (42.2-75.2); Absolute Basophils 0.1 10^3/uL (0-0.2); Absolute Eosinophils 0.4 10^3/uL (0-0.7); Absolute Lymphocytes 1.1 10^3/uL (1.2-3.4); Absolute Monocytes 1.2 10^3/uL (0.1-0.6); Absolute Neutrophils 7.4 10^3/uL (1.4-6.5); Hematocrit 37.6 % (37.0-47.0); Mean Corp Hgb Conc. 34.6 g/dL (33.0-37.0); Mean Corpuscular Hgb 34.9 pg (27.0-31.0); Mean Corpuscular Volume 101.1 fL (81.0-99.0); Mean Platelet Volume 10.6 fL (7.4-10.4); Nucleated Red Blood Cells % 0 %; Platelet Count 264 10^3/uL (130-400); Red Blood Cell Count 3.72 10^6/uL (4.20-5.40); Red Cell Dist. Width 12.3 % (11.5-14.5); White Blood Cell Count 10.2 10^3/uL (4.8-10.8)
[2024-03-18 08:59] LABS: ALT (SGPT) 25 U/L (0-35); AST (SGOT) 51 U/L (14-36); Albumin 3.9 g/dl (3.5-5.0); Alkaline Phosphatase 90 U/L (38-126); Blood Urea Nitrogen 7 mg/dl (7-17); Calcium 9.3 mg/dl (8.4-10.2); Carbon Dioxide 29 mmol/L (22-30); Chloride 97 mmol/L (98-107); Estimated Creatinine Clearance 98 ml/min; Glucose 97 mg/dl (70-99); Potassium 3.4 mmol/L (3.5-5.1); Sodium 136 mmol/L (135-145); Total Bilirubin 0.5 mg/dl (0.2-1.3); Total Protein 6.5 g/dl (6.3-8.2); eGFR > 60.00
[2024-03-18] MEDS: VITAMIN B1 100 MG PO ×2 (09:50→19:50)
[2024-03-18] MEDS: FOLVITE 1 MG PO (09:50)
[2024-03-18] MEDS: LUMINAL 64.7999999999999972 MG PO ×3 (09:50→22:36)
[2024-03-18] MEDS: KEPPRA 1000 MG PO ×2 (09:50→19:50)
[2024-03-18 11:00] VITALS: BP 130/89
[2024-03-18] MEDS: NSS (PRESERVATIVE FREE) 1 ML IV (12:49)
[2024-03-18] MEDS: ATIVAN 1 MG IV (12:49)
--- NOTE | 2024-03-18 14:18 | CM ---
Case management following for d/c planning
Pt for inpatient rehab at [facility] [facility]
Per physician will be for d/c tomorrow
Called [facility] and spoke with Stephany - aware pt will be for d/c tomorrow
Plan - inpatient rehab at d/c
[2024-03-18 15:00] VITALS: BP 114/79
--- NOTE | 2024-03-18 15:00 | W.PN.UPDATE ---
Update Note
Progress Note Update
Pt is scheduled for discharge to rehab today. She is on a phemobarb detox. K =3.4 today and AST coming down now 51.
She was fast asleep in her room, so I did not disturb her.
--- NOTE | 2024-03-18 15:32 | W.PN.HOSP.TC ---
Today's Communication/Plan
-
Feels somehow anxious today, although with no symptoms of delirium tremors or new seizures.
Continue current monitoring with MSAS protocol
Continue phenobarbital taper.
Assessment / Plan
Assessment / Plan
Impression:
Generalized seizure
Alcohol use disorder.
Benzodiazepine dependence.
Anxiety disorder
Plan
Generalized seizure likely due to continuation of alcohol and benzodiazepine withdrawal.
Discussed with neurology
Plan is to keep on Keppra for now, although not for long-term
Continue seizure precautions.
Manage alcohol withdrawal
Alcohol use disorder.
Alcohol level on presentation 44.
At risk for delirium tremens.
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
Continue MSAS protocol with lorazepam.
Please hold standing dose of Xanax and Ambien.
Aggressive thiamine repletion over the next 72 hours.
Continue IV phenobarbital taper
Discharge to in-patient rehab tomorrow
Appreciate neurology/psychiatry input.
Anticipated Discharge: 24 - 48 hours
Subjective/Interval History
-
Date of Service: March 18, 2024
Objective Data
-
Labs:
Laboratory Results
03/18/24
06:17
WBC 10.2
Hgb 13.0
Hct 37.6
Plt Count 264
Sodium 136
Potassium 3.4 L
Chloride 97 L
Carbon Dioxide 29
BUN 7
Creatinine 0.4 L
Glucose 97
Calcium 9.3
Total Bilirubin 0.5
AST 51 H
ALT 25
Alkaline Phosphatase 90
Vital Signs:
Vital Signs
Temp Pulse Resp BP Pulse Ox
98.3 F 82 18 130/89 100
03/18/24 11:00 03/18/24 11:00 03/18/24 11:00 03/18/24 11:00 03/18/24 11:00
I&O
03/17/24 03/18/24 03/19/24
06:59 06:59 06:59
Intake Total 240 / 240 710 / 710
Balance 240 / 240 710 / 710
Physical Exam
-
General: No Apparent Distress and Comfortable
HEENT: Normocephalic, Atraumatic, Moist Mucous Membranes and Anicteric
Respiratory: Clear to Auscultation and Non Labored Respirations
Cardiac: Regular Rhythm and S1/S2
GI: Soft, Nontender, Nondistended and No Hepatosplenomegaly
Genito-urinary: No Costovertebral Tender
Musculoskeletal: No Clubbing, No Cyanosis and No Edema
Skin: Warm, Dry and IV Access / Catheter Site
Neuro: Awake, Alert, Oriented and Nonfocal/Grossly Intact
Hematologic / Lymphatic: No Lymphadenopathy
Psych: Calm
[2024-03-18] MEDS: ATIVAN 1 MG PO (22:36)
[2024-03-18 23:55] VITALS: BP 100/69
[2024-03-19 07:00] VITALS: BP 112/80
[2024-03-19] MEDS: FOLVITE 1 MG PO (08:23)
[2024-03-19] MEDS: KEPPRA 1000 MG PO ×2 (08:23→19:40)
[2024-03-19] MEDS: VITAMIN B1 100 MG PO ×2 (08:23→19:40)
[2024-03-19] MEDS: LUMINAL 64.7999999999999972 MG PO ×2 (08:24→16:10)
[2024-03-19] MEDS: ATIVAN 1 MG PO (10:15)
--- NOTE | 2024-03-19 12:06 | CM ---
Case management following for d/c planning
Pt for inpatient rehab
Cont phenobarb taper
Chucky from [facility] updated
Plan - anticipate inpatient rehab when medically ready
--- NOTE | 2024-03-19 12:31 | W.PN.UPDATE ---
Update Note
Progress Note Update
39 y/o who is completing phenobarb and Ativan detox for alcohol dependence. Had witnessed seizure at home when she ran out of Xanax and reduced drinking. She did not feel well (non-specific complaint) yesterday, but slept well and feels well
today. Said she may have overdone activity after being inactive. For discharge today to rehab. She is mildly anxious, and quite concerned about a newly discovered brain lesion which may represent Marchiafava-Bignami. Does not want to delay having
this worked-up. Her mother has a connection the chief of Neurology at [facility], so I encouraged them to use that person to expedite an appointment.
She is stable and ready for discharge.
--- NOTE | 2024-03-19 13:53 | W.PN.HOSP.TC ---
Today's Communication/Plan
-
Continue and complete phenobarbital taper
Pending transfer to inpatient rehab once through phenobarbital taper
Continue thiamine
Discussed with psychiatry, nursing, patient's and mother.
Assessment / Plan
Assessment / Plan
Impression:
Generalized seizure
Alcohol use disorder.
Benzodiazepine dependence.
Anxiety disorder
Plan
Generalized seizure likely due to continuation of alcohol and benzodiazepine withdrawal.
Discussed with neurology
Plan is to keep on Keppra for now, although not for long-term
Continue seizure precautions.
Manage alcohol withdrawal
Alcohol use disorder.
Alcohol level on presentation 44.
At risk for delirium tremens.
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
Continue MSAS protocol with lorazepam.
Please hold standing dose of Xanax and Ambien.
Aggressive thiamine repletion over the next 72 hours.
Continue IV phenobarbital taper
Discharge to in-patient rehab tomorrow
Appreciate neurology/psychiatry input.
Anticipated Discharge: 24 - 48 hours
Subjective/Interval History
-
Date of Service: March 19, 2024
Objective Data
-
Vital Signs:
Vital Signs
Temp Pulse Resp BP Pulse Ox
98.7 F 87 17 112/80 96
03/19/24 07:00 03/19/24 07:00 03/19/24 07:00 03/19/24 07:00 03/19/24 07:00
I&O
03/18/24 03/19/24 03/20/24
06:59 06:59 06:59
Intake Total 710 / 710 1630 / 1630
Balance 710 / 710 1630 / 1630
Physical Exam
-
General: No Apparent Distress and Comfortable
HEENT: Normocephalic, Atraumatic, Moist Mucous Membranes and Anicteric
Respiratory: Clear to Auscultation and Non Labored Respirations
Cardiac: Regular Rhythm and S1/S2
GI: Soft, Nontender, Nondistended and No Hepatosplenomegaly
Genito-urinary: No Costovertebral Tender
Musculoskeletal: No Clubbing, No Cyanosis and No Edema
Skin: Warm, Dry and IV Access / Catheter Site
Neuro: Awake, Alert, Oriented and Nonfocal/Grossly Intact
Hematologic / Lymphatic: No Lymphadenopathy
Psych: Calm
[2024-03-19 15:00] VITALS: BP 142/97
[2024-03-19] MEDS: LUMINAL 32.3999999999999986 MG PO (22:16)
[2024-03-19 23:36] VITALS: BP 141/91
[2024-03-19] MEDS: ATIVAN 1 MG IV (23:39)
[2024-03-20] MEDS: VITAMIN B1 100 MG PO (08:16)
[2024-03-20] MEDS: KEPPRA 1000 MG PO (08:17)
[2024-03-20] MEDS: LUMINAL 32.3999999999999986 MG PO (08:17)
[2024-03-20] MEDS: FOLVITE 1 MG PO (08:17)
[2024-03-20 09:15] VITALS: BP 121/85
--- NOTE | 2024-03-20 10:47 | CM ---
Addendum entered by Nancy Mathur 03/20/24 12:13:
Spoke with Chucky from [facility] ready for pt
to transport
Clinicals faxed to [phone]
Plan - [facility] for inpatient rehab
Addendum entered by Nancy Mathur 03/20/24 11:34:
Spoke with Chucky at [facility] - will contact [facility] and return call with update
Original Note:
Pt for discharge today to inpatient rehab
Called [facility] at [phone] and - pt for d/c today. Return call requested
to transport
Plan - d/c to inpatient rehab
--- NOTE | 2024-03-20 10:56 | W.DS.TRANS ---
DC Summary - [employer]
-
Discharge Instructions:
Discharge Diagnosis/Procedures Alcohol and benzodiazepine withdrawal seizures
Alcohol and benzodiazepine use disorder
Diet Regular
Instructions:
Stand-Alone Forms:
Changes to Home Medications: Yes
Discharge Medications:
DC Medications w/original date entered in [facility]
thiamine HCl (vitamin B1) 100 mg tablet 100 mg PO BID #30 tabs 03/20/24
Home Medication Changes
Adderall and benzodiazepines had been discontinued.
Pending Results: No
--- NOTE | 2024-03-20 11:02 | W.PN.HOSP.TC ---
Today's Communication/Plan
-
- Anticipated discharge today.
Assessment / Plan
Assessment / Plan
Impression:
Generalized seizure
Alcohol use disorder.
Benzodiazepine dependence.
Anxiety disorder
Plan
Generalized seizure likely due to continuation of alcohol and benzodiazepine withdrawal.
Discussed with neurology
Discontinued levetiracetam
Continue seizure precautions
Manage alcohol withdrawal
Alcohol use disorder.
Alcohol level on presentation 44.
At risk for delirium tremens.
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
Continue MSAS protocol with lorazepam.
Please hold standing dose of Xanax and Ambien.
Aggressive thiamine repletion over the next 72 hours.
Continue IV phenobarbital taper
Discharge to in-patient rehab today
Appreciate neurology/psychiatry input.
Anticipated Discharge: Today
Subjective/Interval History
-
Date of Service: March 20, 2024
Objective Data
-
Vital Signs:
Vital Signs
Temp Pulse Resp BP Pulse Ox
98.4 F 88 16 141/91 98
03/19/24 23:36 03/19/24 23:36 03/19/24 23:36 03/19/24 23:36 03/20/24 10:10
I&O
03/19/24 03/20/24 03/21/24
06:59 06:59 06:59
Intake Total 1630 / 1630 1470 / 1470 720 / 720
Balance 1630 / 1630 1470 / 1470 720 / 720
Review of Systems
-
History Source: Patient
Constitutional: Reports Sleep Disturbance (restlessness)
EENT: Reports No Symptoms Reported
Respiratory: Reports No Symptoms
Cardiac: Reports No Symptoms
Abdomen/GI: Reports No Symptoms
Genitourinary: Reports No Symptoms
Musculoskeletal: Reports No Symptoms
Skin: Reports No Symptoms
Neuro: Reports No Symptoms
Endocrine: Reports No Symptoms
Hematologic / Lymphatic: Reports No Symptoms
Allergy / Immunology: Reports No Symptoms
Psych: Reports Anxious
Physical Exam
-
General: No Apparent Distress and Comfortable
HEENT: Normocephalic, Atraumatic, Moist Mucous Membranes and Anicteric
Respiratory: Clear to Auscultation and Non Labored Respirations
Cardiac: Regular Rhythm and S1/S2
GI: Soft, Nontender, Nondistended and No Hepatosplenomegaly
Genito-urinary: No Costovertebral Tender
Musculoskeletal: No Clubbing, No Cyanosis and No Edema
Skin: Warm, Dry and IV Access / Catheter Site
Neuro: Awake, Alert, Oriented and Nonfocal/Grossly Intact
Hematologic / Lymphatic: No Lymphadenopathy
Psych: Calm
[2024-03-20 12:18] VITALS: BP 146/93
== END 2024-03-20 12:59 | DRG 897 ==
LOC: 3 WEST ACU 01:57
PROVIDERS: Clinical Nurse Specialist Family Health; Student in an Organized Health Care Education/Training Program; ADMITTING PHYSICIAN Internal Medicine; ATTENDING PHYSICIAN Internal Medicine; CONSULT PHYSICIAN Psychiatry & Neurology Psychiatry; EMERGENCY PHYSICIAN Emergency Medicine; FAMILY PHYSICIAN Family Medicine; OTHER PHYSICIAN Psychiatry & Neurology Neurology
DX: F13.230 Sedative, hypnotic or anxiolytic dependence with withdrawal, uncomplicated (principal); E51.2 Wernicke's encephalopathy; G37.1 Central demyelination of corpus callosum; F10.239 Alcohol dependence with withdrawal, unspecified; R56.9 Unspecified convulsions; G93.89 Other specified disorders of brain; F32.A Depression, unspecified; F41.9 Anxiety disorder, unspecified; Y90.2 Blood alcohol level of 40-59 mg/100 ml; F10.220 Alcohol dependence with intoxication, uncomplicated; M54.16 Radiculopathy, lumbar region; G44.009 Cluster headache syndrome, unspecified, not intractable; M54.2 Cervicalgia; G89.29 Other chronic pain; F90.9 Attention-deficit hyperactivity disorder, unspecified type; M53.3 Sacrococcygeal disorders, not elsewhere classified; F43.10 Post-traumatic stress disorder, unspecified; M41.9 Scoliosis, unspecified; Z87.442 Personal history of urinary calculi; Z88.0 Allergy status to penicillin
CPT/HCPCS: 70450; 70553; 80053; 80306; 80307; 82077; 82607; 82728; 82746; 82977; 84443; 85025; 85027; 85652; 93005; 96361; 96374; 99285